=== PATIENT | male | born 1975 | race African-American/Black ===

== ENCOUNTER → 2021-06-01 | Outpatient (CLI) | payer MEDICARE, OTHER ==
[~2021-06-01] VITALS: Ht 180.3 cm; Wt 126.0 kg
[2021-06-01 13:47] VITALS: BP 119/59
== END | disposition home or self-care (01) ==
LOC: SRCNTR 12:31
PROVIDERS: ATTEND Internal Medicine
DX: J44.9 Chronic obstructive pulmonary disease, unspecified (principal); I42.8 Other cardiomyopathies; I47.2 Ventricular tachycardia; I49.01 Ventricular fibrillation; I48.0 Paroxysmal atrial fibrillation
CPT/HCPCS: G0463; Z7500

== ENCOUNTER → 2021-06-14 | Outpatient (CLI) | payer MEDICARE, OTHER ==
[2021-06-16 18:06] LABS: QUANTIFERON, TB GOLD PLUS Negative (Negative)
== END | disposition home or self-care (01) ==
LOC: LABPV 10:02
PROVIDERS: ATTEND Internal Medicine
DX: J44.1 Chronic obstructive pulmonary disease with (acute) exacerbation (principal); D86.9 Sarcoidosis, unspecified
CPT/HCPCS: 86038; 86225; 86256; 86480; 86635; 87206; 36415-L1; 36415-TC

== ENCOUNTER → 2021-07-25 | Outpatient (CLI) | payer MEDICARE, OTHER ==
[~2021-07-25] VITALS: Ht 180.3 cm; Wt 75.0 kg
[2021-07-25 13:34] VITALS: BP 109/65
== END | disposition home or self-care (01) ==
LOC: SRCNTR 09:55
PROVIDERS: ATTEND Internal Medicine
DX: I13.0 Hypertensive heart and chronic kidney disease with heart failure and stage 1 through stage 4 chronic kidney disease, or unspecified chronic kidney disease (principal); E11.22 Type 2 diabetes mellitus with diabetic chronic kidney disease; I50.22 Chronic systolic (congestive) heart failure; N18.6 End stage renal disease; I27.22 Pulmonary hypertension due to left heart disease; I63.9 Cerebral infarction, unspecified; R91.8 Other nonspecific abnormal finding of lung field; D86.9 Sarcoidosis, unspecified; I48.91 Unspecified atrial fibrillation; F17.210 Nicotine dependence, cigarettes, uncomplicated; M10.9 Gout, unspecified; I49.01 Ventricular fibrillation; N28.1 Cyst of kidney, acquired; I42.8 Other cardiomyopathies; E66.9 Obesity, unspecified; I47.2 Ventricular tachycardia; E55.9 Vitamin D deficiency, unspecified
CPT/HCPCS: G0463